=== PATIENT | female | born 1945 | race Caucasian/White ===

== ENCOUNTER 2019-09-27 16:43 | Inpatient (IN) | payer OTHER ==
[~2019-09-27] VITALS: Ht 165.1 cm; Wt 52.2 kg
[2019-09-27 16:43] VITALS: BP_SYST 119
[2019-09-27] MEDS ORDERED: NACL 0.9% 1,000 ML IV ONE (16:53)
--- NOTE | 2019-09-27 17:30 | NUR ---
Patient to ER bed 2 to gown for evaluation. Side rails up.
[2019-09-27 17:50] LABS: BASOPHILS # (AUTO) 0.1 K/uL (0.0-0.2); BASOPHILS % (AUTO) 0.9 % (0.0-2.0); EOSINOPHILS # (AUTO) 0.4 K/uL (0.0-0.4); EOSINOPHILS % (AUTO) 3.4 % (0.0-4.0); HEMATOCRIT 46.9 % (36-48); HEMOGLOBIN 15.2 g/dL (12.0-16.0); LYMPHOCYTES # (AUTO) 1.6 K/uL (1.0-5.5); LYMPHOCYTES % (AUTO) 14.5 % (20.5-51.5); MEAN CORPUSCULAR HEMOGLOBIN 32 pg (27-31); MEAN CORPUSCULAR HGB CONC 32 % (32-36); MEAN CORPUSCULAR VOLUME 99 fL (79.0-98.0); MONOCYTES # (AUTO) 0.5 K/uL (0.0-1.0); MONOCYTES % (AUTO) 4.8 % (1.7-9.3); NEUTROPHILS # (AUTO) 8.5 K/uL (1.8-7.7); NEUTROPHILS % (AUTO) 76.4 % (40.0-70.0); PLATELET COUNT (AUTO) 285 K/uL (130-430); RED BLOOD CELL COUNT(AUTO) 4.72 MIL/uL (4.2-6.2); RED CELL DISTRIBUTION WIDTH 15.5 % (9.0-15.0); WHITE BLOOD COUNT (AUTO) 11.2 K/uL (4.8-10.8)
[2019-09-27 17:53] LABS: ANION GAP 6 (5-15); CALCIUM 8.8 mg/dL (8.4-11.0); CREATININE 1.33 mg/dL (0.55-1.30); GLUCOSE 107 mg/dL (70-99); UREA NITROGEN, BLOOD 47 mg/dL (8-21)
[2019-09-27 17:55] LABS: SODIUM SERUM 163 mmol/L (136-145)
[2019-09-27 17:57] LABS: CHLORIDE 124 mmol/L (98-107)
[2019-09-27 17:58] LABS: PROTHROMBIN TIME 10.2 SECS (9.5-12.5)
[2019-09-27 18:00] LABS: ALANINE AMINOTRANSFERASE 39 U/L (12-78); ALBUMIN 2.8 g/dL (3.4-4.8); AMYLASE 27 U/L (0-100); ASPARTATE AMINOTRANSFERASE 39 U/L (10-37); LIPASE 32 U/L (73-393); TOTAL BILIRUBIN 0.4 mg/dL (0.0-1.0)
--- NOTE | 2019-09-27 18:10 | NUR ---
ER Dr. Valenzuela at bedside examining patient.
--- NOTE | 2019-09-27 18:20 | NUR ---
Patient BIB BLS c/o abnormal labs. Patient A&Ox1, skin pink, afebrile, denies pain, denies N/V/D. C/O sent by Dr. Peterson LABS DRAWN YESTERDAY AND CRITICALLY HIGH SODIUM >160. GENERAL WEAKNESS.
[2019-09-27] MEDS ORDERED: LORazepam 2 MG/ML VIAL IVP ONE ×2 (18:30→19:15)
--- NOTE | 2019-09-27 18:40 | NUR ---
# 20 gauge angiocath placed to right arm . Use of asceptic technique. Opsite placed over site. Blood return noted. Blood for lab drawn from site. Flushed with 10 cc of normal saline. No evidence of infiltration noted. Patient tolerated well.
--- NOTE | 2019-09-27 19:10 | NUR ---
Patient will be admitted to care of Dr. Peterson. Admitted to Tele unit. Will go to room 121. Belongings list completed. Complete and up to date summary report printed. SBAR report to be given at bedside with opportunity for questions.
--- NOTE | 2019-09-27 19:32 | NUR ---
Report to Yesenia DOE
[2019-09-27] MEDS ORDERED: MEMA5TAB PO (20:05)
[2019-09-27] MEDS ORDERED: LORA-258 PO (20:06)
[2019-09-27] MEDS ORDERED: DIVA125T2 PO (20:09)
[2019-09-27] MEDS ORDERED: BISA10SU61 RC (20:10)
[2019-09-27] MEDS ORDERED: MOM PO (20:10)
[2019-09-27] MEDS ORDERED: ESCI10TA PO (20:13)
[2019-09-27] MEDS ORDERED: ATEN-41 PO (20:14)
[2019-09-27] MEDS ORDERED: SER25 PO (20:14)
[2019-09-27] MEDS ORDERED: AMLO2.5T2 PO (20:16)
[2019-09-27] MEDS ORDERED: LIP10 PO (20:16)
[2019-09-27] MEDS ORDERED: QUET50TA PO (20:17)
[2019-09-27] MEDS ORDERED: ZOLP5TAB2 PO (20:17)
--- NOTE | 2019-09-27 20:30 | NUR ---
Pt O2 sat is 90% pt started on 2L NC. Will cont. to monitor.
--- NOTE | 2019-09-27 20:34 | NUR ---
Medication reconciliation completed with information provided by patients paperwork from facility in chart. Any prior medication reconciliation on file was reviewed and corrected.
--- NOTE | 2019-09-27 20:59 | NUR ---
ADMISSION NOTE Received patient from ER via lesliermarcella, received report from RN. Patient admitted with diagnosis of HYPERNATREMIA, HYPERCHLOREMIA AND ALOC. Patient oriented to hospital routine, call light, toileting and safety-patient verbalized understanding.
[2019-09-27] MEDS ORDERED: IPRATROPIUM BROM 0.5 MG/2.5 ML VIAL.NEB (ATROVENT) INH PRN (21:00)
[2019-09-27] MEDS ORDERED: ACETAMINOPHEN 325 MG TABLET PO PRN (21:00)
[2019-09-27] MEDS ORDERED: D5W 1,000 ML IV ONE (21:00)
[2019-09-27] MEDS ORDERED: ALBUTEROL SULFATE 0.083% 2.5 MG/3 ML VIAL.NEB INH PRN (21:00)
[2019-09-27 21:07] VITALS: BP_SYST 134
[2019-09-27] MEDS ORDERED: MILK OF MAGNESIA 30 ML UDC PO PRN (21:45)
[2019-09-27] MEDS ORDERED: BISACODYL 10 MG/SUPPOSITORY RC PRN (21:45)
--- NOTE | 2019-09-27 22:05 | NUR ---
IVF D5W IVF BAG HUNG AND REGULATED TO INFUSE AT ORDERED RATE. IV IS PATENT WITH NO S/S OF INFILTRATION AT IV SITE. PT RESTING WITH NO S/S OF ACUTE DISTRESS. SAFETY AND FALL PRECAUTIONS ARE IN PLACE. WILL MONITOR.
[2019-09-28] VITALS: BP_SYST 128
--- NOTE | 2019-09-28 00:06 | NUR ---
RESTING PT RESTING IN BED, NO S/S OF ACUTE DISTRESS, BREATHING IS UNLABORED, NO SOB NOTED. NO S/S OF PAIN OR DISCOMFORT, NO FACIAL GRIMACE NOTED. SAFETY PRECAUTIONS ARE IN PLACE. WILL MONITOR.
--- NOTE | 2019-09-28 02:24 | NUR ---
SLEEPING PT RESTING IN BED WITH EYES CLOSED. VISIBLE SYMMETRICAL RISE AND FALL OF CHEST, BREATHING IS UNLABORED. SKIN IS WARM AND DRY TO TOUCH. IVF INFUSING AT ORDERED RATE. PT APPEARS COMFORTABLE AT THIS TIME. SAFETY AND FALL PRECAUTIONS ARE IN PLACE. WILL MONITOR.
--- NOTE | 2019-09-28 04:30 | NUR ---
RN NOTE: PT RESTING COMFORTABLY, NO S/S OF DISTRESS, IVF INFUSING AT ORDERED RATE, SAFETY AND FALL PRECAUTIONS ARE IN PLACE. WILL MONITOR.
[2019-09-28 05:38] VITALS: BP_SYST 128
--- NOTE | 2019-09-28 06:27 | NUR ---
ROUNDS: COMPLETE LINEN AND GOWN CHANGE. BED BATH PROVIDED. PT REPOSITIONED FOR COMFORT. WARM BLANKET RENDERED. NO S/S OF DISTRESS. PT TOLERATED WELL. SAFETY PRECAUTIONS MAINTAINED. WILL MONITOR.
--- NOTE | 2019-09-28 07:07 | NUR ---
CLOSING NOTE PT RESTING IN BED, NO S/S OF DISTRESS, BREATHING IS UNLABORED TO O2 VIA NC AT 2L. NO SIGN OF PAIN OR DISCOMFORT. SAFETY PRECAUTIONS ARE IN PLACE. WILL ENDORSE TO DAY SHIFT RN.
[2019-09-28 07:22] LABS: BASOPHILS # (AUTO) 0.1 K/uL (0.0-0.2); BASOPHILS % (AUTO) 0.9 % (0.0-2.0); EOSINOPHILS # (AUTO) 0.4 K/uL (0.0-0.4); EOSINOPHILS % (AUTO) 3.6 % (0.0-4.0); HEMATOCRIT 39.8 % (36-48); LYMPHOCYTES # (AUTO) 1.4 K/uL (1.0-5.5); LYMPHOCYTES % (AUTO) 12.3 % (20.5-51.5); MEAN CORPUSCULAR HEMOGLOBIN 32 pg (27-31); MEAN CORPUSCULAR HGB CONC 33 % (32-36); MEAN CORPUSCULAR VOLUME 98 fL (79.0-98.0); MONOCYTES # (AUTO) 0.7 K/uL (0.0-1.0); MONOCYTES % (AUTO) 6.5 % (1.7-9.3); NEUTROPHILS # (AUTO) 8.5 K/uL (1.8-7.7); NEUTROPHILS % (AUTO) 76.7 % (40.0-70.0); PLATELET COUNT (AUTO) 246 K/uL (130-430); RED BLOOD CELL COUNT(AUTO) 4.05 MIL/uL (4.2-6.2); RED CELL DISTRIBUTION WIDTH 15.4 % (9.0-15.0); WHITE BLOOD COUNT (AUTO) 11.1 K/uL (4.8-10.8)
--- NOTE | 2019-09-28 08:00 | NUR ---
RECEIVED AWAKE BUT VERY CONFUSED TO NAME TIME AND PLACE AND REORIENTED VSS RESP EVEN AND UNLABORED TELE IN PLACE BUT CONSTANTLY TRYING TO REMOVE AND ALSO PULLING AT IV AND REMOVED AND NEW IV STARTED REPOSITIONED IN BED AND HELPED TO TAKE BREAKFAST SPEECH SLURRED AND UNABLE TO MAKE OUT ANY WORDS INCONTINENT AND CHANGED CONTINUE TO MONITOR
[2019-09-28 09:00] LABS: ANION GAP 5 (5-15); POTASSIUM 3.7 mmol/L (3.5-5.1); SODIUM SERUM 158 mmol/L (136-145)
[2019-09-28] MEDS: MEMANTINE HCL 5 MG TABLET PO SCH ×2 (09:00→21:36)
[2019-09-28 09:01] LABS: CALCIUM 8.2 mg/dL (8.4-11.0); CREATININE 1.24 mg/dL (0.55-1.30); GLUCOSE 139 mg/dL (70-99); UREA NITROGEN, BLOOD 45 mg/dL (8-21)
[2019-09-28 09:03] LABS: ALANINE AMINOTRANSFERASE 33 U/L (12-78); ALBUMIN 2.4 g/dL (3.4-4.8); ASPARTATE AMINOTRANSFERASE 32 U/L (10-37); PHOSPHORUS 3.3 mg/dL (2.7-4.5); TOTAL BILIRUBIN 0.4 mg/dL (0.0-1.0); VALPROIC ACID 14 ug/mL (50-100)
[2019-09-28 09:05] LABS: CHLORIDE 124 mmol/L (98-107)
[2019-09-28] MEDS: amLODIPine BESYLATE 5 MG TABLET PO SCH (09:54)
[2019-09-28] MEDS: CITALOPRAM HYDROBROMIDE 20 MG TABLET PO SCH (09:54)
[2019-09-28] MEDS: ATENOLOL 25 MG TABLET(TENORMIN) PO SCH (09:55)
--- NOTE | 2019-09-28 10:11 | NUR ---
Nutrition Update Kit Scale 17 noted. Pt admitted for hypernatremia, hyperchloremia, ALOC. Diet: 2 gm Na BMI: 19.3 kg/m2 RD to follow per nutrition care standards.
--- NOTE | 2019-09-28 12:29 | NUR ---
CONSULTATION PAGED/CALLED Reason for Consultation: HIGH NA Person Who was Notified: LORENZO Consulting Physician: Family Nurse Specialty: Ordering Physician:
--- NOTE | 2019-09-28 13:00 | NUR ---
SEEN BY DR SEXTON AND WANTS CT CHEST DONE AND RECEIVED TELEPHONE CONSENT FROM FAMILY ALSO WANTS URINE SAMPLE AND STRAIGHT CATH ATTEMPTED AND PT REFUSES PULLED IV OUT AGAIN AND REFUSING ANOTHER ATTEMPT AT THIS TIME.WILL CONTINUE TO ASSESS AND ATTEMPT TO DO LATER
[2019-09-28 16:16] VITALS: BP_SYST 137
--- NOTE | 2019-09-28 16:58 | NUR ---
RESTING AT PRESENT AND NO DISTRESS NOTED VSS TELE MONITOR IN PLACE WILL ATTEMPT TO RESTART IV WHEN WAKES UP AND STRAIGHT CATH AND WILL CONTINUE TO MONITOR
[2019-09-28 18:28] LABS: BILIRUBIN,URINE NEGATIVE (NEGATIVE); BLOOD, URINE NEGATIVE (NEGATIVE); CLARITY/URINE CLEAR (CLEAR); COLOR,URINE YELLOW (YELLOW); GLUCOSE,URINE NEGATIVE (NEGATIVE); KETONES,URINE NEGATIVE (NEGATIVE); LEUKOCYTE ESTERASE ,URINE NEGATIVE (NEGATIVE); NITRITE, URINE NEGATIVE (NEGATIVE); PROTEIN URINE NEGATIVE (NEGATIVE); UROBILINOGEN,URINE 0.2 (0.2-1.0)
[2019-09-28] MEDS: DIPHENHYDRAMINE INJ 50 MG/ML VIAL IM PRN (18:38)
--- NOTE | 2019-09-28 19:28 | NUR ---
new iv started and iv infusing urine specimen was sent report to yayo rn given
--- NOTE | 2019-09-28 19:30 | NUR ---
Pt was received lying in bed awake, but confused and disoriented. No acute distress noted at this time. IVF of D5W is infusing well in CHAVA at 100ml/hr without any signs of infiltration at the IV site. Fall and safety precautions are in place. Call light is with pt and bed alarm is on. Bed is in the lowest and locked positions. Pt's room is across from the Nurses' Station.
[2019-09-28 20:00] VITALS: BP_SYST 136
[2019-09-28] MEDS: ATORVASTATIN 10 MG TABLET PO SCH (21:36)
--- NOTE | 2019-09-28 21:36 | NUR ---
Pt remains confused and disoriented. HS medications given po after being crushed and mixed with apple sauce. No difficulty swallowing noted. Pt ate entire cup of apple sauce. IVF is infusing well in CHAVA. Call light is with pt and bed alarm is on.
--- NOTE | 2019-09-28 23:10 | NUR ---
Pt is very confused and disoriented. Pt moves around all over in her bed and has removed her color artist's electrodes twice tonight after they were reapplied. Pt repositioned in bed. Pt also reoriented to her room and surrounding. IVF is infusing well in CHAVA. Fall and safety precautions are in place.
[2019-09-29 01:30] VITALS: BP_SYST 143
--- NOTE | 2019-09-29 01:30 | NUR ---
Pt is sleeping without any distress noted. IVF is infusing well in CHAVA. Fall and safety precautions are in place.
--- NOTE | 2019-09-29 03:30 | NUR ---
Pt is awake and not in any distress. IVF is infusing well in CHAVA. Fall and safety precautions are in place.
--- NOTE | 2019-09-29 05:23 | NUR ---
Pt is awake and not in any distress. Fall and safety precautions are in place.
--- NOTE | 2019-09-29 06:58 | NUR ---
Pt is awake and resting quietly in bed. All pt's needs were attended to. IVF is infusing well in HORACIO. Fall and safety precautions are in place. Will endorse to day shift nurse.
[2019-09-29 07:51] LABS: BASOPHILS # (AUTO) 0.1 K/uL (0.0-0.2); BASOPHILS % (AUTO) 0.9 % (0.0-2.0); EOSINOPHILS # (AUTO) 0.6 K/uL (0.0-0.4); EOSINOPHILS % (AUTO) 5.6 % (0.0-4.0); HEMATOCRIT 37.5 % (36-48); HEMOGLOBIN 12.1 g/dL (12.0-16.0); LYMPHOCYTES # (AUTO) 1.7 K/uL (1.0-5.5); LYMPHOCYTES % (AUTO) 14.2 % (20.5-51.5); MEAN CORPUSCULAR HEMOGLOBIN 32 pg (27-31); MEAN CORPUSCULAR HGB CONC 32 % (32-36); MEAN CORPUSCULAR VOLUME 98 fL (79.0-98.0); MONOCYTES # (AUTO) 0.8 K/uL (0.0-1.0); MONOCYTES % (AUTO) 7.2 % (1.7-9.3); NEUTROPHILS # (AUTO) 8.4 K/uL (1.8-7.7); NEUTROPHILS % (AUTO) 72.1 % (40.0-70.0); PLATELET COUNT (AUTO) 224 K/uL (130-430); RED BLOOD CELL COUNT(AUTO) 3.83 MIL/uL (4.2-6.2); RED CELL DISTRIBUTION WIDTH 14.6 % (9.0-15.0); WHITE BLOOD COUNT (AUTO) 11.7 K/uL (4.8-10.8)
--- NOTE | 2019-09-29 08:00 | NUR ---
Note Pt assisted in sitting position in bed to eat her breakfast. Pt was fed her breakfast by RN. Pt able to swallow mechanical soft food without difficulty or choking. Tele unit attached and intact. IV in CHAVA wrapped in Kerlix wrap, patent and intact infusing IVF's well at this time. No SOB/resp distress or pain/discomfort noted at this time. Pt next to nurses' station for close observation for needs and care. Call light within reach.
[2019-09-29 08:01] VITALS: BP_SYST 143
[2019-09-29] MEDS: amLODIPine BESYLATE 5 MG TABLET PO SCH (08:09)
[2019-09-29] MEDS: MEMANTINE HCL 5 MG TABLET PO SCH ×2 (08:09→20:47)
[2019-09-29] MEDS: CITALOPRAM HYDROBROMIDE 20 MG TABLET PO SCH (08:09)
[2019-09-29] MEDS: ATENOLOL 25 MG TABLET(TENORMIN) PO SCH (08:09)
[2019-09-29 08:19] LABS: ALANINE AMINOTRANSFERASE 35 U/L (12-78); ALBUMIN 2.5 g/dL (3.4-4.8); ANION GAP 5 (5-15); ASPARTATE AMINOTRANSFERASE 33 U/L (10-37); CALCIUM 7.7 mg/dL (8.4-11.0); CHLORIDE 114 mmol/L (98-107); CREATININE 1.11 mg/dL (0.55-1.30); GLUCOSE 121 mg/dL (70-99); POTASSIUM 3.6 mmol/L (3.5-5.1); SODIUM SERUM 151 mmol/L (136-145); TOTAL BILIRUBIN 0.5 mg/dL (0.0-1.0); UREA NITROGEN, BLOOD 36 mg/dL (8-21)
--- NOTE | 2019-09-29 10:20 | NUR ---
Note Pt next to nurses' station for close observation for needs and care. Pt resting in bed, no needs noted at this time. Call light within reach.
[2019-09-29 12:13] VITALS: BP_SYST 126
--- NOTE | 2019-09-29 12:40 | NUR ---
NOTE Dr Peterson at bedside doing assessment/rounds at this time. Orders to be written. MD was informed that pt unable to lie still and CT of chest with contrast not able to be done yesterday and today. Dr Peterson to write order for Ativan IVP - per MD.
[2019-09-29 13:20] LABS: BASOPHILS # (AUTO) 0.1 K/uL (0.0-0.2); BASOPHILS % (AUTO) 0.9 % (0.0-2.0); EOSINOPHILS # (AUTO) 0.7 K/uL (0.0-0.4); HEMATOCRIT 42.1 % (36-48); HEMOGLOBIN 13.7 g/dL (12.0-16.0); LYMPHOCYTES # (AUTO) 1.9 K/uL (1.0-5.5); LYMPHOCYTES % (AUTO) 13.7 % (20.5-51.5); MEAN CORPUSCULAR HEMOGLOBIN 32 pg (27-31); MEAN CORPUSCULAR HGB CONC 33 % (32-36); MEAN CORPUSCULAR VOLUME 98 fL (79.0-98.0); MONOCYTES # (AUTO) 0.8 K/uL (0.0-1.0); MONOCYTES % (AUTO) 5.5 % (1.7-9.3); NEUTROPHILS # (AUTO) 10.6 K/uL (1.8-7.7); NEUTROPHILS % (AUTO) 74.9 % (40.0-70.0); PLATELET COUNT (AUTO) 257 K/uL (130-430); RED CELL DISTRIBUTION WIDTH 14.4 % (9.0-15.0); WHITE BLOOD COUNT (AUTO) 14.2 K/uL (4.8-10.8)
[2019-09-29] MEDS ORDERED: LORazepam 2 MG/ML VIAL IVP ONE (13:30)
[2019-09-29 13:41] LABS: ALANINE AMINOTRANSFERASE 33 U/L (12-78); ALBUMIN 2.4 g/dL (3.4-4.8); ANION GAP 6 (5-15); ASPARTATE AMINOTRANSFERASE 37 U/L (10-37); CALCIUM 7.7 mg/dL (8.4-11.0); CHLORIDE 111 mmol/L (98-107); CREATININE 1.08 mg/dL (0.55-1.30); GLUCOSE 139 mg/dL (70-99); SODIUM SERUM 146 mmol/L (136-145); TOTAL BILIRUBIN 0.4 mg/dL (0.0-1.0); UREA NITROGEN, BLOOD 38 mg/dL (8-21)
--- NOTE | 2019-09-29 16:00 | NUR ---
Note Dr Peterson was called to notify him that pt is positive for MRSA at this time, waiting for call back.
[2019-09-29] MEDS: D5W 1,000 ML IV SCH (16:32)
[2019-09-29 16:45] VITALS: BP_SYST 103
--- NOTE | 2019-09-29 18:30 | NUR ---
Note Dr Peterson called back and protocol for MRSA started. Pt was moved from room 121A to 120A (isolation room). Pt was checked on q1' and PRN all shift for needs and care. Tele unit attached and intact all shift and CHAVA IV intact and patent infusing IVF's well. Call light within reach. Pt next to nurses' station all shift for close observation. Pt restless and agitated in bed. Pt has rash all over her body and itching a lot.
[2019-09-29 19:00] VITALS: BP_SYST 124
--- NOTE | 2019-09-29 19:15 | NUR ---
change of shift.pt.presents isolation status;contact;mrsa;nares.pt.presents restless;agitated affect.pt.presents rash;profuse distribution. throughout body habitus.pt.presents itching gesture. present.has stated to day-shift jake;matthew;rn:topical medication:augmented betamethone;0.05%,solumedrol;ivp q-12hrs;initial dose tonight.to f/u re;new medication orders.call light/telephone w/in reach of the pt.
[2019-09-29] MEDS ORDERED: CLOBETASOL PROPIONATE 0.05% 15 GM CREAM..G. TP ONE (19:30)
--- NOTE | 2019-09-29 19:30 | NUR ---
i have administered benadryl:25mg.
[2019-09-29] MEDS: DIPHENHYDRAMINE INJ 50 MG/ML VIAL IM PRN (19:36)
[2019-09-29 20:00] VITALS: BP_SYST 124
--- NOTE | 2019-09-29 20:00 | NUR ---
pt.assessed.v/s assessed.values w/in normal limits.pt.presents quiescent affect;calm,somnolent.benadryl presents effcacy. pt.assessed ff or cleanliness.pt.repositioned.iv access intact;patent;iv fluids infusing.general status stable.respiratory status stable;O2-sat%=96%.call light/telephone placed w/in reach of the pt.
[2019-09-29] MEDS: ATORVASTATIN 10 MG TABLET PO SCH (20:47)
[2019-09-29] MEDS: methylPREDNISolone SOD SUCC 40 MG/ML VIAL IVP SCH (20:47)
[2019-09-29] MEDS: MUPIROCIN 2% TOPICAL OINTMENT 22 GM TP SCH (20:47)
--- NOTE | 2019-09-29 21:00 | NUR ---
2100p medication solumedrol ivp administered.po medications held;pt.presents somnolent status.
--- NOTE | 2019-09-29 22:00 | NUR ---
pt.assessed pt.presents quiescent affect;calm,somnolent.general status stable.respiratory status stable:o2-sat%=96%, iv access intact;patent. iv fluids infusing.call light/telpehone placed w/in reach of the pt.
--- NOTE | 2019-09-30 | NUR ---
pt.assessed.v/s assessed values w/in normal limits.pt.presents quiescent affect;calm,somnolent.pt.assessed for cleanliness.pt.repositioned. general status stable.respiratory status stable;unlabored;02-sat%=96%.call light/telephone placed w/in the reach of the pt.
[2019-09-30 00:45] VITALS: BP_SYST 122
--- NOTE | 2019-09-30 02:00 | NUR ---
pt.assessed.pt presents quiescent affect;calm,somnolent.pt.assessed for cleanliness.pt.repositioned.iv acces intact;patent; iv fluids infusing general status stable.respiratory status stable;unlabored;02-sat%=96%.call light/telephone placed w/in reach of the pt.
--- NOTE | 2019-09-30 04:00 | NUR ---
pt.assessed.pt.presents quiescent affect;calm,somnolent.pt.assessed for cleanliness.pt.repositioned.iv access intact;patent; iv fluids infusing.general status stable.respiratory status stable;unlabored;o2-sat%=96%. call light/telephone placed w/in reach of the pt.
[2019-09-30] MEDS: D5W 1,000 ML IV SCH ×2 (05:40→10:38)
--- NOTE | 2019-09-30 06:09 | NUR ---
pt.assessed.pt.assessed for cleanliness.pt cleaned.pt repositioned.iv access intact;patent;iv fluids infusing. pt.presents quiescent affect;calm,somnolent.call light/telephone placed w/in reach of the pt.
--- NOTE | 2019-09-30 08:00 | NUR ---
[facility] INITIAL NOTES RECEIVED PATIENT IN BEB SCRATCHING, WITH RASHES TO ARMS AND SKIN RAISED , PATIENT WITH IVF TO LEFT UPPER ARM , NO DISTRESS, PATIENT IS UNCOOPERATIVE AT THIS TIME D/T ITCHING WILL VERIFY BENADRYL ORDER, ALSO WITH TOPICAL MEDS , IVF INFUSING ORDERED , SAFETY ENSURED AND WILL FOLLOW UP WITH PALN OF CARE TODAY , SISTER CALLED AND SAID SHE WILL CALL BACK LATER AGAIN ONCE MD COMES SEEING PATIENT
[2019-09-30] MEDS: DIPHENHYDRAMINE INJ 50 MG/ML VIAL IV PRN ×2 (08:47→16:56)
[2019-09-30] MEDS: methylPREDNISolone SOD SUCC 40 MG/ML VIAL IVP SCH ×2 (08:48→21:43)
[2019-09-30] MEDS: MEMANTINE HCL 5 MG TABLET PO SCH ×2 (08:53→21:45)
[2019-09-30] MEDS: CITALOPRAM HYDROBROMIDE 20 MG TABLET PO SCH (08:54)
[2019-09-30] MEDS: ATENOLOL 25 MG TABLET(TENORMIN) PO SCH (08:54)
[2019-09-30] MEDS: amLODIPine BESYLATE 5 MG TABLET PO SCH (08:55)
[2019-09-30 09:00] VITALS: BP_SYST 114
--- NOTE | 2019-09-30 10:00 | NUR ---
ROUNDS PATIENT SLEEPING A THIS TIME AFTER BENADRYL GIVEN
--- NOTE | 2019-09-30 10:17 | NUR ---
CONSULTS DR SEXTON CALLED AND ORDERS NOTED , PATIENT WILL BE CONSULTED WITH RACK WASHER DR EDUARDO SHE IS AWARE OF THE CT O FTHE CHEST RESULT , WILL PAGED DR SERRANO FOR THE CONSULT Addendum: 09/30/19 at 1027 by Alejandrina Monk RN ATIVAN DR SEXTON INFORMED PATIENT WITH EPISODES OF RESTLESSNESS , ORDERED ATIVAN PO
--- NOTE | 2019-09-30 10:21 | NUR ---
CONSULTATION PAGED/CALLED Reason for Consultation: CA EVALUATION Person Who was Notified: SPOKE WITH SHERI FROM [facility] Consulting Physician: Construction Helper Specialty: ONCOLOGY Ordering Physician:
--- NOTE | 2019-09-30 10:23 | NUR ---
CONSULTATION PAGED/CALLED Reason for Consultation: BRONCH BIOPSY TUMOR Person Who was Notified: SPOKE WITH DR.TSANG RECINOS WAS HERE TO SEE PATIENT Consulting Physician: Gr[employer] 1 [employer] 5 Teacher Specialty: PULMO Ordering Physician:
[2019-09-30] MEDS: CLOBETASOL PROPIONATE 0.05% 15 GM CREAM..G. TP SCH ×2 (10:39→21:48)
[2019-09-30] MEDS: MUPIROCIN 2% TOPICAL OINTMENT 22 GM TP SCH ×2 (11:48→21:47)
[2019-09-30 12:30] VITALS: BP_SYST 104
--- NOTE | 2019-09-30 12:30 | NUR ---
ROUNDS PATIENT AT THIS TIME STILL SLEEPY NO DISTRESS , SEEN BY DR EDUARDO INFORMED THAT O2 SAT ON AND OFF DOWN TO 89% TO 90% WITH ORDER OK WITH OXYGEN ORDER, NO DISTRESS , PATIENT HOB ELEVATED , DR EDUARDO INFORMED THAT SISTER NAKUL WANTS TO SPEAK WITH HER REG PLAN OF CARE , DR EDUARDO SAID SHE WILL COME BACK AND WILL CALL THE SISTER .
--- NOTE | 2019-09-30 13:30 | NUR ---
DR MAGGIE FOWLER CAME INFORMED AND DISCUSSED WITH DR EDUARDO REG PATIENT CONDITION DR EDUARDO HAD SPOKEN WITH SISTER AND PER DR EDUARDO THE SISTER WILL CALL THE DAUGHTER AND WILL DISCUSSED FURTHER PLAN OF CARE , AND SHE WILL LET US KNOW AFTER THAT
--- NOTE | 2019-09-30 15:00 | NUR ---
DR DARSHAN SEXTON CAME INFORMED PATIENT CONDITION, INFORMED DR EDUARDO SPOKE WITH THE DPOA SISTER AND PER DPOA SHE WILL TALK WITH THE DAUGHTER AND WILL GET BACK TO THE DRS AFTER , ALSO DR SERRANO MADE AWARE OF THE FAMILY PENDING DECISION. WILL CONT PALN OF CARE , DR SEXTON CONSULTED DR SANTIAGO
--- NOTE | 2019-09-30 15:24 | NUR ---
CONSULTATION PAGED/CALLED Reason for Consultation: PSYCH Person Who was Notified: SPOKE WITH SARAH FROM DR.JACOB DAVID Vasquez Consulting Physician: Lithographic Proofer Apprentice Specialty: PSYCH Ordering Physician: FACE SHEET WAS FAXED [phone] Addendum: 09/30/19 at [address] CNA [address] CAMEJO IS DAIRY CATTLE FARM MANAGER FOR
[2019-09-30] MEDS: LORazepam 1 MG TABLET PO PRN ×2 (15:55→21:44)
[2019-09-30 16:20] VITALS: BP_SYST 118
--- NOTE | 2019-09-30 17:00 | NUR ---
SCRATCHING A LOT PATIENT NOTED SCRATCHING A LOT AND MOVES A LOT IN BED , BENADRYL GIVEN FOR ITCHING
--- NOTE | 2019-09-30 17:12 | NUR ---
Dietitian Recommendations *Continue 2gmNa diet *Recommend Ensure Enlive TID w/ meals (325kcal and 20gPro per serving) *Encourage PO intake Please see Nutrition Assessment for further details. LT, RD
--- NOTE | 2019-09-30 18:36 | NUR ---
ENDORSEMENT WILL ENDORSE TO NEXT SHIFT CONT CARE ,PATIENT SEEN BY DR JOSE AND CONFIRM PATIENT REDNESS AND RASHES LESSENED TODAY COMPARED YESTERDAY, PATIENT STILL WITH EPISODES OF RESTLESSNESS D/T SCRATCHING , WILL CONT WITH BENADRYL AND ATIVAN , PER KEEP THE DOSE OF BENADRYL AND ATIVAN , KEEP PATIENT SAFE AND WILL FOLLOW UP IN AM,PATIENT IS A FEEDER.
--- NOTE | 2019-09-30 19:30 | NUR ---
Opening note Received patient resting in bed w/ eyes closed; she was arousable to name. AOx1, no s/sx of distress, nonlabored breathing on room air. VSS: BP 108/65, HR 62, SpO2 92%. IVF infusing via IV left upper arm. Side rails up 3x, bed locked in lowest position, bed alarm on and call light w/in reach.
[2019-09-30 20:00] VITALS: BP_SYST 108
[2019-09-30] MEDS: ATORVASTATIN 10 MG TABLET PO SCH (21:44)
--- NOTE | 2019-09-30 21:45 | NUR ---
Medications Patient is restless and fidgety in bed. Due medications given. Administered ativan for agitation as ordered. Medications were crushed and mixed in applesauce; she swallowed eagerly and w/out difficulty. Solumedrol IVP administered and tolerated. Safety precautions in place; will continue to monitor.
[2019-10-01] MEDS: ZOLPIDEM TARTRATE 5 MG TABLET PO PRN ×2 (01:06→21:57)
--- NOTE | 2019-10-01 01:09 | NUR ---
Awake - Ambien Patient is awake and restless. Administered ambien for sleep as ordered. Safety precautions in place, will continue to monitor.
[2019-10-01 02:10] VITALS: BP_SYST 142
[2019-10-01] MEDS: DIPHENHYDRAMINE INJ 50 MG/ML VIAL IV PRN ×2 (02:30→16:21)
--- NOTE | 2019-10-01 02:30 | NUR ---
Scratching - restless Patient is scratching and moving arms and legs in restless motion. Administered Benadryl IVP as ordered.
[2019-10-01] MEDS: D5W 1,000 ML IV SCH (02:37)
--- NOTE | 2019-10-01 02:40 | NUR ---
IVF IVF fluids empty; hung new bag of IVF fluids and replaced tubing as well. Infusing well as ordered at 60 ml/hr. Patient is settling down with scratching and restlessness.
--- NOTE | 2019-10-01 03:50 | NUR ---
Patient care Assisted nurse acquisitions assistant in providing bed bath and clinton-care. Patient was no cooperative and needs two people to prevent her from pulling an IV or injuring self or staff. Safety precautions in place, IVF infusing well. Will continue to monitor.
--- NOTE | 2019-10-01 06:30 | NUR ---
Closing note Last round, assessed patient for incontinence and presently is dry. Patient is calm and no longer restless, nor is she tossing and turning in bed. She is resting w/ eyes closed and allowed placement of oxygen NC. Safety precautions in place and call light w/in reach. IVF infusing well. Needs met throughout shift, will endorse care to incoming nurse.
--- NOTE | 2019-10-01 08:00 | NUR ---
RN INITIAL NOTES RECEIVED PATIENT IN BED AWKE BUT WITH CLOSED EYES , CONFUSED , NO DISTRESS , PATIENT HAD HER 02 ON LAST NIGHT . RESP EVEN AND UNLABORED , WILL CONT CARE
[2019-10-01] MEDS: methylPREDNISolone SOD SUCC 40 MG/ML VIAL IVP SCH ×2 (08:49→21:53)
[2019-10-01] MEDS: LORazepam 1 MG TABLET PO PRN ×2 (08:50→17:48)
[2019-10-01] MEDS: CITALOPRAM HYDROBROMIDE 20 MG TABLET PO SCH (08:50)
[2019-10-01] MEDS: MEMANTINE HCL 5 MG TABLET PO SCH ×2 (08:51→21:53)
[2019-10-01] MEDS: ATENOLOL 25 MG TABLET(TENORMIN) PO SCH (08:52)
[2019-10-01] MEDS: amLODIPine BESYLATE 5 MG TABLET PO SCH (08:52)
[2019-10-01 08:57] LABS: BASOPHILS % (AUTO) 0.1 % (0.0-2.0); HEMATOCRIT 36.3 % (36-48); HEMOGLOBIN 12.2 g/dL (12.0-16.0); LYMPHOCYTES # (AUTO) 1.1 K/uL (1.0-5.5); LYMPHOCYTES % (AUTO) 9.4 % (20.5-51.5); MEAN CORPUSCULAR HEMOGLOBIN 32 pg (27-31); MEAN CORPUSCULAR HGB CONC 34 % (32-36); MEAN CORPUSCULAR VOLUME 96 fL (79.0-98.0); MONOCYTES # (AUTO) 0.3 K/uL (0.0-1.0); MONOCYTES % (AUTO) 2.2 % (1.7-9.3); NEUTROPHILS # (AUTO) 10.2 K/uL (1.8-7.7); NEUTROPHILS % (AUTO) 88.3 % (40.0-70.0); PLATELET COUNT (AUTO) 239 K/uL (130-430); RED BLOOD CELL COUNT(AUTO) 3.78 MIL/uL (4.2-6.2); RED CELL DISTRIBUTION WIDTH 14.4 % (9.0-15.0); WHITE BLOOD COUNT (AUTO) 11.6 K/uL (4.8-10.8)
[2019-10-01] MEDS: MUPIROCIN 2% TOPICAL OINTMENT 22 GM TP SCH ×2 (09:04→21:57)
[2019-10-01] MEDS: CLOBETASOL PROPIONATE 0.05% 15 GM CREAM..G. TP SCH ×2 (09:04→21:57)
[2019-10-01 09:08] LABS: ALANINE AMINOTRANSFERASE 44 U/L (12-78); ALBUMIN 2.4 g/dL (3.4-4.8); ASPARTATE AMINOTRANSFERASE 40 U/L (10-37); CALCIUM 7.7 mg/dL (8.4-11.0); CHLORIDE 105 mmol/L (98-107); CREATININE 1.05 mg/dL (0.55-1.30); GLUCOSE 163 mg/dL (70-99); POTASSIUM 4.5 mmol/L (3.5-5.1); SODIUM SERUM 139 mmol/L (136-145); TOTAL BILIRUBIN 0.3 mg/dL (0.0-1.0); UREA NITROGEN, BLOOD 42 mg/dL (8-21)
[2019-10-01 09:13] LABS: ANION GAP < 3 (5-15)
--- NOTE | 2019-10-01 10:00 | NUR ---
ROUNDS PATIENT HAD HER AM MEDS AND TOLERATED PATIENT STARTING TO BE RESTLESS EARLIER , GIVEN ATIVAN PO AND TOLERATED, PATIENT DAUGHTER HERE AND EXPLAINED PLAN OF CARE , DTR SAID THEY DONT WANT ANY FURTHER PROCEDURE/TRETMENT AND PLANNING TO HAVE PATIENT BACK TO SNF, WANTS TO SPEAK WITH JAVA LEAD TO GET MORE INFO FOR PALLIATIVE/HOSPICE CARE, LISSETTE PREPARED FOODS ASSOCIATE SAID SHE WILL LET THE CM /SS TO SPEAK WITH FAMILY IN AM , INFORMED DTR ABOUT IT AND ALSO INFORMED SISTER NAKUL, WILL FOLLOW UP IN AM
[2019-10-01] MEDS: D5/0.45 NS 1,000 ML IV SCH ×2 (10:05→16:28)
--- NOTE | 2019-10-01 12:00 | NUR ---
ASLEEP/ROUNDS PATIENT SLEEPING AT THIS TIME BUT EASILY AROUSABLE,DR SEXTON WITH ORDER CT GUIDED LUNG BIOPSY IN AM
[2019-10-01 12:35] VITALS: BP_SYST 104
--- NOTE | 2019-10-01 13:00 | NUR ---
PSYCHIATRIST VISIT DR HAZEL CAME SEEN PATIENT DISCUSSED CONDITION NO NEW MEDS GIVEN ADVISED TO TREAT THE ELECTROLYTES WHICH A LOT TO DO WITH THE PATIENT CONFUSION
--- NOTE | 2019-10-01 15:04 | NUR ---
DR EDUARDO PULMONOLOGY CAME IN DISCUSSED WITH HER ABOUT THE CT GUIDED LUNG BIOPSY ORDERED BY RADIOLOGIST/DR SEXTON AND DR EDUARDO SAID TO VERIFY WITH THE FAMILY IF THEY AGREED BEC PATIENT IS MORE WITH A RISK , AND MD MADE AWARE THAT FAMILY SAID THEY DONT WANT ANY FURTHER TEST AND PROCEDURE. CALLED ADAM LEFT A MESSAGE TO VERIFY IF SHE WILL AGREE WITH THE PROPOSED CT GUIDED LUNG BIOPSY. CALLED AND SPOKE WITH DAUGHTER ROXANNE AND SHE SAID SHE DONT WANT CT LUNG GUIDED BIOPSY TO BE DONE "ITS TOO RISKY", CALLED AND NOTIFIED DR SEXTON , ORDER DC
[2019-10-01 16:14] VITALS: BP_SYST 116
--- NOTE | 2019-10-01 16:47 | NUR ---
BENADRYL PATIENT WOKE UP AFTER BEING CHANGED AND STARTED TO SCRATCH AND STARTING TO BE RESTLESS , BENADRYL GIVEN WILL MONITOR
--- NOTE | 2019-10-01 17:50 | NUR ---
ATIVAN PATIENT STILL RESTLESS AFTER BENADRYL AND KEEP TRYING TO GET OUT OF BED , WILL MONITOR ATIVAN EFFECT
--- NOTE | 2019-10-01 19:06 | NUR ---
ENDORSEMENT WILL CONT CARE PATIENT IS STILL CONFUSED INTERMITTENTLY AWAKE AND RESTLESS BENADRYL AND ATIVAN WORK AT TIMES , PATIENT FAMILY WILL SPEAK WITH YARN HANDLER FOR THE POSSIBLE HOSPICE/PALLIATIVE CARE . DR SEXTON IS AWARE . WILL CONT TO PROVIDE SAFETY
--- NOTE | 2019-10-01 19:30 | NUR ---
Opening note Received patient resting in bed awake. AOx1, no s/sx of distress, nonlabored breathing on room air. She is restless and tugging at her gown, attempting to remove it. She has removed her telemonitor leads, which I will reattach. IVF infusing via IV left upper arm. Side rails up 3x, bed locked in lowest position, bed alarm on and call light w/in reach
[2019-10-01 20:00] VITALS: BP_SYST 132
[2019-10-01] MEDS: ATORVASTATIN 10 MG TABLET PO SCH (21:53)
--- NOTE | 2019-10-01 21:58 | NUR ---
Medications Due PO medications given, crushed and mixed in applesauce, patient swallowed without difficulty. IV is occluded, not flushing; unwrapped gauze to assess IV site and it was infiltrated. IV site was loosely attached and it was removed. Catheter tip was visualized. Patient was provided with bed bath, clinton-care and clean linen. Safety precautions in place and call light w/in reach.
--- NOTE | 2019-10-01 23:30 | NUR ---
IV start IV to CHAVA was infiltrated and removed IV catheter, tip visualized and intact, no active bleeding noted. New IV # 22 gauge angiocath was placed to HORACIO . Use of asceptic technique, opsite placed over site. Blood return noted. Flushed with 10 cc of normal saline. Patient was restless during procedure and attempted to swing arms, nurse certified nursing assistant instructor at bedside to assist. Connected IVF and infusing as ordered.
[2019-10-01 23:56] VITALS: BP_SYST 145
--- NOTE | 2019-10-02 02:10 | NUR ---
Rounds Patient is resting w/ eyes closed, she is sleeping and presently not restless. Oxygen NC was placed and she did not resist. IVF infusing well. Safety precautions in place, will continue to monitor.
--- NOTE | 2019-10-02 04:31 | NUR ---
Rounds Patient is resting w/ eyes closed, oxygen NC is in place. Nonlabored breathing, no s/sx of distress.
[2019-10-02] MEDS: DIPHENHYDRAMINE INJ 50 MG/ML VIAL IV PRN (05:32)
--- NOTE | 2019-10-02 05:36 | NUR ---
Scratching Patient scratching and moving legs restlessly. Administered Benadryl as ordered. Will continue to monitor.
--- NOTE | 2019-10-02 06:55 | NUR ---
Closing note Patient resting, quietly and calm w/ eyes closed. Presently not scratching. IVF infusing well. Safety precautions in place. needs met throughout shift, will endorse to incoming nurse.
[2019-10-02 08:25] VITALS: BP_SYST 145
--- NOTE | 2019-10-02 08:25 | NUR ---
INITIAL ROUNDS Received pt awake, confused, no s/s resp distress, no c/o pain or discomfort. Noted emesis on the floor=pt denied that she threw up or had an upset stomach. Initially pt refused to have this nurse touch her or even take her vital signs. Finally able to take pt's vital signs and complete physical assessment. IVF infusing well to HORACIO at ordered rate with no s/s infiltration to site. 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 Side rails up x3, bed alarm on and room across from nursing station for safety. Skin and aspiration precautions in place. Call light within reach.
--- NOTE | 2019-10-02 09:35 | NUR ---
FAMILY/SW Pt's daughter Lelo called and requested to speak with a Traverse Rod Assembler regarding Palliative care for her mom, left message on SW extension. Lelo's phone # [phone].
[2019-10-02] MEDS: LORazepam 1 MG TABLET PO PRN ×2 (10:38→18:04)
--- NOTE | 2019-10-02 10:38 | NUR ---
FALL Informed by THERAPIST RADIATION that pt got herself out of bed and fell on the floor, pt with no c/o pain or discomfort. Pt moving all limbs, pt still attemping to get out of bed-dx board operator now at bedside for safety. Noted pt very itchy-pt stated "I can't stand this!". Pt given given Ativan as ordered. Dr. Peterson called-awaiting call back.
[2019-10-02] MEDS: MUPIROCIN 2% TOPICAL OINTMENT 22 GM TP SCH ×2 (11:08→22:38)
[2019-10-02] MEDS: CLOBETASOL PROPIONATE 0.05% 15 GM CREAM..G. TP SCH ×2 (11:08→22:39)
[2019-10-02] MEDS: MEMANTINE HCL 5 MG TABLET PO SCH ×2 (11:09→22:37)
[2019-10-02] MEDS: ATENOLOL 25 MG TABLET(TENORMIN) PO SCH (11:10)
[2019-10-02] MEDS: amLODIPine BESYLATE 5 MG TABLET PO SCH (11:10)
[2019-10-02] MEDS: CITALOPRAM HYDROBROMIDE 20 MG TABLET PO SCH (11:10)
[2019-10-02] MEDS ORDERED: DIPHENHYDRAMINE INJ 50 MG/ML VIAL ONE (11:13)
--- NOTE | 2019-10-02 11:28 | NUR ---
SS NOTE: AIR OPERATIONS MANAGER attempted to phone pt's daughter Lelo @ [phone], phone is unavailable. SS will attempt to phone later. Addendum: 10/02/19 at 1336 by Pradeep SORIA AIR OPERATIONS MANAGER spoke with pedro Lind about the difference between Hospice and Palliative. Pt's sister Kristine (IDALIA) has decided she wants Palliative done, Dr. Peterson ordered for Palliative consult. Spoke with Divine from [facility], who states they can accommodate pt if they decided on palliative. Addendum: 10/02/19 at 1631 by Pradeep SORIA AIR OPERATIONS MANAGER spoke with Fara MOTA who stated that they have decided to go with hospice care but has not decided on which Hospice Agency to use. Fara will connect with pt's daughter regarding it and will call back when decision has been made. Fara would still want to use [facility] as the SNF, but has a few conditions and will contact [facility] if they can be accommodated.
--- NOTE | 2019-10-02 11:40 | NUR ---
ROUNDS Pt now resting quietly in bed. Admit Nurse stayed at pt's bedside for safety. All precautions remain in place.
[2019-10-02 11:53] VITALS: BP_SYST 120
--- NOTE | 2019-10-02 12:14 | NUR ---
FAMILY Called pt's daughter Lelo and informed her that the pt fell earlier this morning. Informed her that the Doctor is aware and that the pt is moving all her extremities. Lelo explained that the pt has had a rash for the past 8 weeks and that the pt is confused even with the family. Lelo also explained that the pt does not like to be touched or have her hand held when she is sick.
--- NOTE | 2019-10-02 13:25 | NUR ---
MD Dr. Trimble -Palliative Care MD here and saw pt-stated he will review pt's chart, talk to family now-pt sleeping in no distress.
[2019-10-02] MEDS: DIPHENHYDRAMINE INJ 50 MG/ML VIAL IVP PRN ×2 (15:23→22:39)
[2019-10-02] MEDS: D5/0.45 NS 1,000 ML IV SCH (15:23)
--- NOTE | 2019-10-02 15:25 | NUR ---
ROUNDS/ITCHINESS Pt very itchy on rounds-pt attempting to sit up. Pt scratching everywhere. Pt given Benadryl as ordered. Lotion applied to pt's shoulders, arms and hips-pt then pushed this real estate underwriter away. Pt very restless, will sit with pt for safety right now.
[2019-10-02] MEDS: ONDANSETRON HCL 4 MG/2 ML VIAL IVP PRN (16:50)
--- NOTE | 2019-10-02 16:55 | NUR ---
NAUSEA/RESTLESS Pt stated she felt like she is going to vomit-pt given Zofran as ordered. Pt remains restless in bed-this development writer sitting in room for pt safety.
--- NOTE | 2019-10-02 17:00 | NUR ---
Wound Evaluation: Wound Consult ordered for Low Kit Score. Patient evaluated for a low Kit score, now a 13. Patient was awake, alert, confused, and received in a Henry Bed with an Isoflex FERNANDEZ mattress. Patient is able to turn in bed but needs direction secondary to confusion (patient is constantly trying to climb out of bed). Skin assessment: 1. Generalized erythematous macular rash with pruritus, present on admission. Recommend: Continue topical steroid cream treatment as ordered, cleansing skin with mild soap and water before application. Recommend encourage and assist patient as needed with repositioning every 2 hours with pillow support. Elevate, off-load and float bilateral heels with pillows. Offload pressure areas with pillows for pressure re-distribution. Perform skin care and monitor skin integrity Q shift. Use moisture barrier cream on moisture susceptible areas QID and PRN for soiling. Initiate low air-loss therapy to assist with pruritic rash.
--- NOTE | 2019-10-02 18:05 | NUR ---
PT RESTLESS/ANXIOUS Pt very restless, sliding down in bed trying to stand up. Pt assisted back into bed in sitting position and given Ativan as ordered. This typewriter operator automatic will remain at bedside for pt safety until relieved by another nurse/SUBSURFACE AUGMENTEE OPERATOR. All precautions remain in place.
[2019-10-02 18:24] VITALS: BP_SYST 149
--- NOTE | 2019-10-02 19:01 | NUR ---
CLOSING NOTE Pt remains restless and confused-Admit nurse at bedside for safety. Pt with no s/s resp distress, no c/o pain or discomfort. IVF infusing well to HORACIO at ordered rate with no s/s infiltration to site. Contact isolation maintained throughout shift. Aspiration, skin and safety precautions remain in place.
--- NOTE | 2019-10-02 19:58 | NUR ---
MD LESA SANTIAGO/ DR. ALFREDO RECORDS ADMINISTRATOR [phone] SPOKE WITH DANA
[2019-10-02 20:00] VITALS: BP_SYST 108
--- NOTE | 2019-10-02 20:03 | NUR ---
Opening Note Received report from day shift RN, patient is restless and confused, reoriented patient to person, place, time and event, patient has no complaints of pain at this time, no signs of acute distress, IV to right upper arm infusing fluids per MD order, patent/benign, safety and fall precautions in place, contact isolation precautions in place, bed locked and in lowest position, bed alarm on, three side rails up, room is free of clutter, call light with patient, will continue plan of care.
[2019-10-02] MEDS: ATORVASTATIN 10 MG TABLET PO SCH (22:37)
--- NOTE | 2019-10-03 00:07 | NUR ---
Rounds: Patient is awake in bed, playing with her blankets, does not show any acute distress. Even, unlabored breathing on room air. IV fluids infusing well, no infiltration. Call light is with patient. Safety, fall, contact iso precautions in place. Will continue to monitor.
[2019-10-03 01:50] VITALS: BP_SYST 130
[2019-10-03] MEDS: ZOLPIDEM TARTRATE 5 MG TABLET PO PRN ×2 (01:54→20:49)
--- NOTE | 2019-10-03 01:54 | NUR ---
Insomnia: Patient is awake, administered Ambien per MD order for insomnia. Medication was crushed and administered with apple sauce. Patient tolerated well. Will continue to monitor.
[2019-10-03] MEDS: DIPHENHYDRAMINE INJ 50 MG/ML VIAL IVP PRN ×4 (02:46→20:49)
[2019-10-03] MEDS: LORazepam 1 MG TABLET PO PRN ×2 (02:47→14:46)
--- NOTE | 2019-10-03 04:14 | NUR ---
Rounds: Patient is awake, sitting up in bed and trying to pull apart her blankets. No acute distress noted. Tolerating room air. IV fluids infusing well to HORACIO, no infiltration noted. Call light is with patient. Safety, fall, and contact isolation precautions in place. Will closely monitor.
--- NOTE | 2019-10-03 06:42 | NUR ---
Closing Note Patient is restless and confused, even and unlabored breathing on room air, patient has no complaints of pain, no signs of acute distress, IV to right upper arm infusing fluids per MD order, patent/benign, safety and fall precautions in place, contact isolation precautions in place, bed locked and in lowest position, bed alarm on, room is free of clutter, three side rails up, call light with patient, will endorse care to dayshift RN.
--- NOTE | 2019-10-03 07:31 | NUR ---
Opening Note received bedside SBAR report from tax expert RN, patient resting in bed, no acute distress noted, respirations even and unlabored, educated patient on use of call light and asked to call for assistance, call light in reach, bed in low and locked position, bed alarm on, sitter at bedside.
[2019-10-03 08:00] VITALS: BP_SYST 133
[2019-10-03] MEDS: ENOXAPARIN SODIUM 30 MG/0.3 ML SYRINGE SUBCUT SCH (08:40)
[2019-10-03] MEDS: CITALOPRAM HYDROBROMIDE 20 MG TABLET PO SCH (08:45)
[2019-10-03] MEDS: ATENOLOL 25 MG TABLET(TENORMIN) PO SCH (08:46)
[2019-10-03] MEDS: PREDNISONE 20 MG TABLET PO SCH (08:46)
[2019-10-03] MEDS: MEMANTINE HCL 5 MG TABLET PO SCH ×2 (08:46→20:48)
[2019-10-03] MEDS: amLODIPine BESYLATE 5 MG TABLET PO SCH (08:47)
[2019-10-03] MEDS: MUPIROCIN 2% TOPICAL OINTMENT 22 GM TP SCH ×2 (08:47→20:49)
[2019-10-03] MEDS: CLOBETASOL PROPIONATE 0.05% 15 GM CREAM..G. TP SCH ×2 (08:48→20:50)
[2019-10-03] MEDS: D5/0.45 NS 1,000 ML IV SCH (09:00)
--- NOTE | 2019-10-03 09:43 | NUR ---
RN Rounds patient resting in bed, respirations even and unlabored on room air, no acute distress noted, patient denies any pain, sitter at bedside.
[2019-10-03 11:49] VITALS: BP_SYST 113
--- NOTE | 2019-10-03 11:58 | NUR ---
RN Rounds patient resting in bed, respirations even and unlabored on room air, no acute distress noted, patient denies any pain, sitter at bedside.
[2019-10-03 12:00] VITALS: BP_SYST 147
--- NOTE | 2019-10-03 13:12 | NUR ---
Bedside Commode/Physician Rounds assisted patient to bedside commode, patient voided x1, assisted patient back to bed, patient resting in bed, Dr. Reaves at bedside examining patient.
--- NOTE | 2019-10-03 13:37 | NUR ---
SS NOTE/DCP/HOSPIC EVAL: CUTTER FINISHER phoned pedro Lind and IDALIA Carmona who are both agreeable to [facility]. CUTTER FINISHER spoke with Travon from [facility], clinicals faxed for review. SS will remain available when needed. Addendum: 10/03/19 at 1516 by Pradeep SORIA per pedro Perera scheduled to meet with them tomorrow 10/04 at 3PM.
--- NOTE | 2019-10-03 15:00 | NUR ---
Wound Care bag machine adjuster at bedside for evaluation of scabbed nodule to posterior head, educated patient on purpose and procedure for wound care, patient verbalized understanding, non-stick foam dressing applied and secured with fernanda wrap, patient tolerated well, no acute distress noted, sitter at bedside.
--- NOTE | 2019-10-03 15:17 | NUR ---
Spoke with Physician spoke with Dr. Peterson, informed him of scabbed nodule on back of head, informed him that wound was evaluated by wound care nurse Earl DOE, per Dr. Peterson no surgical consults needed at this time, treat conservatively with wound care, nonadhesive foam dressing applied, secured with fernanda wrap, informed Dr. Peterson that patient had two episodes of small emesis, new orders received for swallow evaluation, per Dr. Peterson continue to feed patient, NPO orders not indicated, verified with telephone read back.
[2019-10-03 17:16] VITALS: BP_SYST 133
--- NOTE | 2019-10-03 17:52 | NUR ---
Itching patient itching skin, patient states, "I feel itchy", PRN benadryl indicated per orders for itching, patient tolerated medication administration well, no acute distress noted, sitter at bedside.
--- NOTE | 2019-10-03 19:20 | NUR ---
Closing Note bedside SBAR report given to receiving RN, patient resting in bed, respirations even and unlabored on room air, no acute distress noted, educated patient on use of call light and asked to call for assistance, patient verbalized understanding, call light in reach, bed in low and locked position, bed alarm on, sitter at bedside, care endorsed to retirement benefits specialist RN.
[2019-10-03 20:00] VITALS: BP_SYST 143
[2019-10-03] MEDS: ATORVASTATIN 10 MG TABLET PO SCH (20:48)
[2019-10-03] MEDS ORDERED: QUEtiapine FUMARATE 25 MG TABLET PO SCH (21:00)
--- NOTE | 2019-10-03 21:58 | NUR ---
PATIENT ATTEMPTED SEVERAL TIMES TO GET OUT OF BED. NO ACUTE DISTRESS NOTED. WILL CONTINUE TO MONITOR. PRN GIVEN FOR SLEEP.
[2019-10-04] MEDS: LORazepam 1 MG TABLET PO PRN ×3 (02:13→20:42)
--- NOTE | 2019-10-04 07:33 | NUR ---
OPENING NOTE Patient resting in the bed. No acute distress. Skin warm and dry to touch. IV intact to HORACIO, no redness, no swelling, on D5 1/2 NS at 50ml/hr, infusing well. Sitter at bedside. Safety measure maintained. Call light within reached. Bed locked in low position, side rails up, bed alarm on. Will continue to monitor.
[2019-10-04 07:55] VITALS: BP_SYST 137
[2019-10-04] MEDS: PREDNISONE 20 MG TABLET PO SCH (08:20)
[2019-10-04] MEDS: MEMANTINE HCL 5 MG TABLET PO SCH ×2 (08:20→20:41)
[2019-10-04] MEDS: CITALOPRAM HYDROBROMIDE 20 MG TABLET PO SCH (08:20)
[2019-10-04] MEDS: amLODIPine BESYLATE 5 MG TABLET PO SCH (08:20)
[2019-10-04] MEDS: CLOBETASOL PROPIONATE 0.05% 15 GM CREAM..G. TP SCH ×2 (08:21→20:43)
[2019-10-04] MEDS: ATENOLOL 25 MG TABLET(TENORMIN) PO SCH (08:21)
[2019-10-04] MEDS: MUPIROCIN 2% TOPICAL OINTMENT 22 GM TP SCH ×2 (08:21→20:43)
[2019-10-04] MEDS: ENOXAPARIN SODIUM 30 MG/0.3 ML SYRINGE SUBCUT SCH (08:22)
--- NOTE | 2019-10-04 08:25 | NUR ---
AM SCHEDULE MED GIVEN, TOLERATED WELL.
--- NOTE | 2019-10-04 10:33 | NUR ---
HOSPICE EVAL: Karthik Patel with pedro Perera re-scheduled for tomorrow 10/05 @ 2PM. Addendum: 10/04/19 at 1327 by Pradeep SORIA per dtr Dilma Lind appt with Ellie is re-scheduled for today 10/04 @ 3PM. Addendum: 10/04/19 at 1631 by Pradeep SORIA Bulmaro GUARDADO from [facility]) and Lelo Parham ([email or web address]) and Fara SALAZAR) on the phone who discussed regarding hospice care, Kristine is agreeing for Lelo to sign papers in her absence. Bulmaro Tinoco, [email or web address] will update unit.
--- NOTE | 2019-10-04 10:52 | NUR ---
ATIVAN GIVEN Patient with agitated behavior noted by trying to get out of bed. Sitter at bedside and comfort her but not effective. Ativan 0.5mg PO given as ordered. Safety measure maintained. Call light within reached. Sitter continue on bedside and holding the patient's hands at this time.
--- NOTE | 2019-10-04 11:07 | NUR ---
Sahwna Ann called: left message for Angélica. [phone]
--- NOTE | 2019-10-04 11:55 | NUR ---
ROUND Patient resting in the bed. No acute distress. Calm at this time. Safety measure maintained. Call light within reached. Bed locked in low position, side rails up, bed alarm on. Sitter at bedside. Continue to monitor.
[2019-10-04 12:00] VITALS: BP_SYST 132
--- NOTE | 2019-10-04 12:58 | NUR ---
SEEN AND EXAMINED BY ESTHER MCINTYRE.
--- NOTE | 2019-10-04 13:28 | NUR ---
SS NOTES: WOOL HAT FLANGER was referred by nursing to see patient for living along with no support system and DCP. Demographic information confirmed. Pt is a 79 y/o single male who lives in an apartment with his friend. Pt states he was going to the bathroom when he fell and unsure why. Pt is a direct admit arranged by PCP. Pt lives on the first floor with no steps to get to the front door. Pt is independent with his ADL's and utilizes a cane to help with his gait. Pt owns a cane and a walker only. Pt states his source of income is $1600/month and does not identify any support system. Pt denies any history or current mental health/substance use/abuse. Pt states he has been falling a lot due to his neuropathy and has not had any meds for them for "a couple of years now". Pt states he will refuse to go to a SNF/HHS if indicated. No further SS needs identified but will f/u if needed. WOOL HAT FLANGER offered to give advanced directive/POLST, but patient refused. Addendum: 10/04/19 at 1335 by Pradeep Cadena WOOL HAT FLANGER WRONG PATIENT - PLS DISREGARD THIS NOTE
[2019-10-04] MEDS ORDERED: QUEtiapine FUMARATE 25 MG TABLET PO ONE (13:45)
--- NOTE | 2019-10-04 13:51 | NUR ---
Nutrition F/U RD reviewed pt's current EMR including diet Hx, physician notes, nursing notes, pertinent labs/meds/procedures, care trends and care activity. Current Diet Order: 2gm Na, Ensure Enlive TID x 1 day Subjective information: Pt seen in bed, somnolent earlier today. Per MD notes 10/03, pt is more alerr, hypernatremia improved, palliative care, for hospice eval. Per bed huddle discussion, pt's daughter will meet w/ Vitas today at 3pm. PO intake remains negligible. RD rec: megace to stimulate appetite. Last BM 10/03. RD noted elevated BG lab value (10/01 BG 163) Current PO intake: Negligible 21% average of 2 days Estimated Energy Expenditure (kcals/day) 5559-2015/day (25-30kcal/kg based on CBW for geriatric maintenance) Estimated Protein Required (g/day) 53-64/day (1-1.2g/kg based on CBW for geriatric maintenance) Estimated Fluid Required (l/day) 1.3-1.6L/day based on CBW for maintenance Problem/Etiology/Signs/Symptoms Suboptimal PO intake related to altered mental status as evidenced by PO intake meeting <75% of est nutrition needs. (*optimal) Altered nutrition-related labs r/t medication AEB elevated BG lab value and solu-medrol. (*new) Expected Outcomes/Goals Monitor appetite and PO intake w/ goal of pt meeting at least 75% of estimated nutritional needs, labs trending WNL, normal GI function, skin integrity/wt maintenance. Dietitian Recommendations *Recommend: Megace to stimulate appetite. *Continue 2gmNa diet w/ Ensure Enlive TID w/ meals (325kcal and 20gPro per serving) *Encourage PO intake Follow Up High Risk: F/U in 2-3days
--- NOTE | 2019-10-04 13:56 | NUR ---
Dietitian Recommendations *Recommend: Megace to stimulate appetite. *Continue 2gmNa diet w/ Ensure Enlive TID w/ meals (325kcal and 20gPro per serving) *Encourage PO intake Please see Nutrition F/U note for details. YIMI, RD
--- NOTE | 2019-10-04 14:45 | NUR ---
FAMILY VISITED Per family, hospice nurse will come at 3pm. Family waiting at bedside.
--- NOTE | 2019-10-04 16:45 | NUR ---
[facility] HOSPICE NURSE TO ASSESS THE PATIENT AND TALKED TO FAMILY.
[2019-10-04 16:55] VITALS: BP_SYST 109
--- NOTE | 2019-10-04 18:06 | NUR ---
S.T. SWALLOW EVAL SWALLOW EVAL COMPLETED. PT PRESENTS W/ GENERALLY FUNCTIONAL OROPHARYNGEAL SWALLOW FOR PUREE AND THIN/THICK LIQUIDS W/ NO S/S OF ASPIRATION. REC: PUREE DIET. THIN LIQUIDS OK. MONITOR FOR ADEQUATE INTAKE. NURSE DARION NOTIFIED. G8996 CK G8997 CK G8998 CK NOMS LEVEL 4
--- NOTE | 2019-10-04 18:26 | NUR ---
Spoke with Hospice Rep Ellie from [facility], at nursing station, patient is accepted to [facility], patient will discharge to [facility] tomorrow, once [facility] can confirm the patient's bed at [facility], Ellie left a voicemail for Case Management to follow up tomorrow morning. Dr. Peterson was made aware.
--- NOTE | 2019-10-04 18:42 | NUR ---
CLOSING NOTE Patient resting in the bed. No acute distress. Skin warm and dry to touch. IV intact to HORACIO not working well at this time, will endorse to night nurse to insert a new one. Sitter at bedside. Safety measure maintained. Call light within reached. Bed locked in low position, side rails up, bed alarm on. Will endorse to night nurse.
[2019-10-04] MEDS: DIPHENHYDRAMINE INJ 50 MG/ML VIAL IVP PRN ×2 (19:59→20:39)
[2019-10-04 20:00] VITALS: BP_SYST 126
--- NOTE | 2019-10-04 20:00 | NUR ---
RECIEVED REPORT @ START OF SHIFT, PATIENT LYING IN BED ITCHING AND SCRATCHING ALL OVER , ATTEMPTED TO GIVE BENADRYL IVP AND WAS UNSUCCESSFUL DUE TO DISLODGED IV ACCESS IN HORACIO, IV #20G INSERTED IN LEFT WRIST AND D51/2 NS@ 50 ML/HR.INFUSING WELL. BENADRYL 25 MG RETAKEN OUT OF PYSIS AND GIVEN TO PATIENT FOR ITCHING, PO MED GIVEN AND TOLERATED WELL, RESTING QUIETLY IN BED, SISTER @ BEDSIDE, WILL CONTINUE TO MONITOR.
[2019-10-04] MEDS: QUEtiapine FUMARATE 25 MG TABLET PO SCH (20:41)
[2019-10-04] MEDS: ATORVASTATIN 10 MG TABLET PO SCH (20:41)
[2019-10-04] MEDS: ONDANSETRON HCL 4 MG/2 ML VIAL IVP PRN (22:25)
[2019-10-05] VITALS: BP_SYST 118
--- NOTE | 2019-10-05 | NUR ---
CLOBETABAL OINT APPLIED TO ENTIRE BODY RASH, APPEARS RESTFUL WHILE RESTING QUIETLY IN BED WITH EYES CLOSED, EASILY AROUSED, DENIES PAIN LEFT WRIST INFUSING D5 1/2NS CONTINUES TO INFUSE @ 50 ML/HR, INCONTIENENT OF URINE ,KEPT CLEAN AND DRY, SELF TURNS AD JAIME, REMAINS IN CONTACT ISOLATION FOR MRSA OF NARES, SR'S UP X'S 3, CALL LIGHT WITHIN REACH AND BED IN LOWEST POSITION, WILL CONTINUE TO MONITOR.
[2019-10-05] MEDS: ZOLPIDEM TARTRATE 5 MG TABLET PO PRN (03:21)
[2019-10-05] MEDS: DIPHENHYDRAMINE INJ 50 MG/ML VIAL IVP PRN ×2 (03:21→14:39)
--- NOTE | 2019-10-05 03:29 | NUR ---
AWAKE, RESTLESS, MAKING SEVERAL ATTEMPTS TO GET OUT OF BED,CONTINUES TO SCRATCHING ALL OVER HER BODY, MEDICATED WITH BENADRYL 25 MG IVP AND GIVEN AMBIEN 5 MG PO FOR INSOMNIA, WILL CONTINUE TO MONITOR.
[2019-10-05 04:00] VITALS: BP_SYST 110
--- NOTE | 2019-10-05 06:26 | NUR ---
CLOSING NOTE: PATIENT TRANSFERRED BY BED TO ROOM 114-A, RESTING QUIETLY IN BED WITH EYES CLOSED, NOTED EPISODES OF RESTLESSNESS, SCRATCHING AND INSOMNIA MEDICATED NEEDED, WILL CONTINUE TO MONITOR PROGRESS OF BODY RASH, NO OPEN AREAS NOTED, AREA ON EYE OF HEAD RED BUT SKIN INTACT, SR'S UP X'S 3, CALL LIGHT WITHIN REACH AND BED IN LOW POSITION, SITTER @ BEDSIDE
--- NOTE | 2019-10-05 07:38 | NUR ---
OPENING NOTE Patient resting in the bed. No acute distress. Skin warm and dry to touch. IV intact to LFA, no redness, no swelling, patent. Sitter at bedside. On contact isolation. Safety measure maintained. Call light within reached. Bed locked in low position, side rails up, bed alarm on. Will continue to monitor.
[2019-10-05 08:00] VITALS: BP_SYST 133
[2019-10-05] MEDS: PREDNISONE 20 MG TABLET PO SCH (09:19)
[2019-10-05] MEDS: QUEtiapine FUMARATE 25 MG TABLET PO SCH (09:20)
[2019-10-05] MEDS: LORazepam 1 MG TABLET PO PRN (09:20)
[2019-10-05] MEDS: CITALOPRAM HYDROBROMIDE 20 MG TABLET PO SCH (09:21)
[2019-10-05] MEDS: MEMANTINE HCL 5 MG TABLET PO SCH (09:21)
[2019-10-05] MEDS: ATENOLOL 25 MG TABLET(TENORMIN) PO SCH (09:22)
[2019-10-05] MEDS: amLODIPine BESYLATE 5 MG TABLET PO SCH (09:23)
[2019-10-05] MEDS: CLOBETASOL PROPIONATE 0.05% 15 GM CREAM..G. TP SCH (09:23)
[2019-10-05] MEDS: MUPIROCIN 2% TOPICAL OINTMENT 22 GM TP SCH (09:23)
[2019-10-05] MEDS: ENOXAPARIN SODIUM 30 MG/0.3 ML SYRINGE SUBCUT SCH (09:24)
--- NOTE | 2019-10-05 09:36 | NUR ---
ATIVAN GIVEN Patient with agitated behavior noted by trying to get out of bed. Sitter at bedside. Ativan 0.5mg PO given as ordered. Safety measure maintained. Call light within reached. Continue to monitor.
--- NOTE | 2019-10-05 10:12 | NUR ---
Hospice Phoned Cheo Fitzpatrick ([place]) [phone]. [facility] Phoned Amanda at [facility] [phone]. Dilma DOE on her way to make all transfer arrangements. Notified DARION DOE
--- NOTE | 2019-10-05 10:35 | NUR ---
[facility] HOSPICE NURSE ARRIVED AND DOING THE PAPER WORK FOR THE PATIENT.
[2019-10-05 12:00] VITALS: BP_SYST 128
--- NOTE | 2019-10-05 12:54 | NUR ---
SEEN AND EXAMINED BY ESTHER MCINTYRE WITH ORDER RECEIVED.
--- NOTE | 2019-10-05 14:39 | NUR ---
BENADRYL GIVEN Patient scratching the arms noted. Benadryl 25mg IVP given as ordered. Sitter at bedside. Safety measure maintained. Call light within reached. Continue to monitor.
[2019-10-05 14:52] VITALS: BP_SYST 128
--- NOTE | 2019-10-05 15:34 | NUR ---
PT TRANSFERRED Report given to NADER Donovan at 1500. Transfer packet with Transfer Orders and Medication Reconciliation form given to EMT with report. Exitcare provided. [facility] ID band removed, replaced with ID band with pt's name and . IV catheter removed, intact and dressing applied, no active bleeding. All belongings sent with patient. Patient left floor via gurney escorted by EMT in no distress.
== END 2019-10-05 15:34 | disposition hospice, home (50) | DRG 682 ==
LOC: SED 16:43 → STU 19:04 → SMU 10-03 14:52
PROVIDERS: ADMIT Internal Medicine; ATTEND Internal Medicine
DX: N17.9 Acute kidney failure, unspecified (principal); G93.41 Metabolic encephalopathy; E87.0 Hyperosmolality and hypernatremia; E44.0 Moderate protein-calorie malnutrition; C34.90 Malignant neoplasm of unspecified part of unspecified bronchus or lung; Z68.1 Body mass index [BMI] 19.9 or less, adult; Z66 Do not resuscitate; E78.00 Pure hypercholesterolemia, unspecified; K21.9 Gastro-esophageal reflux disease without esophagitis; E78.5 Hyperlipidemia, unspecified; E86.0 Dehydration; E87.8 Other disorders of electrolyte and fluid balance, not elsewhere classified; F03.90 Unspecified dementia, unspecified severity, without behavioral disturbance, psychotic disturbance, mood disturbance, and anxiety; I10 Essential (primary) hypertension; J44.9 Chronic obstructive pulmonary disease, unspecified; M19.90 Unspecified osteoarthritis, unspecified site; Z51.5 Encounter for palliative care; Z86.73 Personal history of transient ischemic attack (TIA), and cerebral infarction without residual deficits; Z87.891 Personal history of nicotine dependence
CPT/HCPCS: 36415; 36600; 70450-TC; 71045; 71250-TC; 80053; 80164-TC; 81003; 82140-TC; 82150-TC; 82550-TC; 82607; 82746; 82803-TC; 83605; 83690-TC; 83735-TC; 83880; 83970; 84100-TC; 84302-TC; 84443-TC; 84484; 85025; 85610-TC; 85730-TC; 87040-TC; 87081; 92610-GN; 93005; 96361; 96374; 96375; 99285; G0378; J1030; J1200; J1650; J2060; J2405; J7060; J7512